=== PATIENT | male | born 1945 | race Caucasian/White ===

== ENCOUNTER 2016-12-09 09:40 | Outpatient (CLI) | payer MEDICARE, OTHER | END 2016-12-09 09:41 | disposition home or self-care (01) | DX: M16.12 Unilateral primary osteoarthritis, left hip (principal) ==

== ENCOUNTER 2017-01-10 11:40 | Outpatient (CLI) | payer MEDICARE, OTHER ==
--- NOTE | 2017-01-10 13:04 | XRAY Report ---
LEFT HIP AND PELVIS: 01/10/2017 CLINICAL INDICATION: Groin pain. COMPARISON: 12/09/2016. FINDINGS: Frontal view of the hips and pelvis and frogleg lateral view of the left hip demonstrate s table left hip osteoarthritis, with chondrocalcinosis. A right hip replacement is stable. There is no evidence of interval fracture or dislocation. IMPRESSION: STABLE OSTEOARTHRITIS. NO SIGNIFICANT INTERVAL CHANGE. JOB #: [id number] EXT JOB #:[id number]
== END 2017-01-10 11:41 | disposition home or self-care (01) ==
LOC: DI 11:40
PROVIDERS: ATTEND Nurse Practitioner Family
DX: M16.12 Unilateral primary osteoarthritis, left hip (principal); M11.252 Other chondrocalcinosis, left hip

== ENCOUNTER 2017-01-14 15:30 | Outpatient (CLI) | payer MEDICARE, OTHER ==
--- NOTE | 2017-01-14 17:50 | MRI Report ---
EXAM: LEFT HIP MRI WITHOUT CONTRAST EXAM DATE: 01/14/2017 04:23 PM. CLINICAL HISTORY: PAIN IN HIP. COMPARISON: LEFT HIP SERIES 01/10/2017. TECHNIQUE: Multiplanar, multisequence T1-weighted and fluid-sensitive, small [id number]-[id number] sequences of the hip and large wexnj-im-vbfy sequences of the pelvis without contrast. Other: None. FINDINGS: Bones: No fractures or subluxations. No avascular necrosis. Left Hip: No acetabular retroversion. 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 Left hip osteoarthritis with quite extensive juxtaarticular edema and cystic changes in the ante rior superior acetabulum, associated with severe cartilaginous thinning and anterior joint space narr owing. Mild joint effusion without loose body. Edema is also seen in the superior femoral head extend ing down to the superior part of femoral neck. Degenerated left hip labrum with abnormal signal in th e anterosuperior part and the superolateral part suggestive of labral tear although cannot be definit ively confirmed on this nonarthrographic study. The ligamentum teres is intact. Other Joints: Degenerative changes in the visualized lower lumbar spine with endplate edema at L4-L5. Degenerative changes in the sacroiliac joints and symphysis pubis. Prior right hip arthroplasty. Musculature: Mild muscular strain with mild edema in the left iliopsoas insertion. Mild fatty atrophy of bilateral gluteus medius and minimus, right more than left. Mild insertional tendinopathy of estephanie ateral gluteus medius and minimus tendons. The visualized hamstring tendons are normal. The ischiofem oral space is normal. No sports hernia. Pelvic Cavity: The visualized viscera are unremarkable. No lymphadenopathy. No free fluid in the pelv is. Other: The visualized sciatic nerves are unremarkable. No bursitis. The subcutaneous tissues are unre markable. IMPRESSION: 1. 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 2. Degenerated left hip labrum with abnormal signal in the anterosuperior part and the superolateral part suggestive of labral tear although cannot be definitively confirmed on this nonarthrographic martha dy. 3. Left hip osteoarthritis with quite extensive juxtaarticular edema and cystic changes in the anteri or superior acetabulum, associated with severe cartilaginous thinning and anterior joint space narrow ing. Mild joint effusion without loose body. 4. Edema is also seen in the superior femoral head extending down to the superior part of femoral nec k. No fracture. 5. Mild muscular strain with mild edema in the left iliopsoas insertion. 6. Mild insertional tendinopathy of bilateral gluteus medius and minimus tendons. No associated troch anteric bursitis. [facility] MUSCULOSKELETAL [facility]IOLOGY SECTION Referring Provider Line: [phone] SITE ID: [id number]
== END 2017-01-14 15:31 | disposition home or self-care (01) ==
LOC: DI 15:30
PROVIDERS: ATTEND Internal Medicine
DX: M16.12 Unilateral primary osteoarthritis, left hip (principal); M24.152 Other articular cartilage disorders, left hip; M25.452 Effusion, left hip; S76.012A Strain of muscle, fascia and tendon of left hip, initial encounter; M67.952 Unspecified disorder of synovium and tendon, left thigh

== ENCOUNTER 2017-01-17 15:02 | Outpatient (CLI) | payer MEDICARE, OTHER ==
--- NOTE | 2017-01-17 15:59 | Ultrasound Report ---
LEFT LEG VENOUS DUPLEX: 01/17/2017 CLINICAL INDICATION: Left groin pain. COMPARISON: 07/17/2014 TECHNIQUE: Real-time sonographic vascular imaging was performed by the shrimp picker through the left leg utilizing both color flow and Doppler spectral analysis. Multiple advertising sales representative static images w ere saved for review. FINDINGS: A left lower extremity venous sonogram is performed revealing the common femoral, superfici al femoral, profunda femoris, and popliteal veins to be adequately visualized without intraluminal de fects. There is normal venous compression, augmentation, phasicity, and spontaneity of venous flow. In the calf, the visualized more cephalad portions of posterior tibial and peroneal veins are grossl y compressible, without filling defects. IMPRESSION: NO EVIDENCE OF DEEP VENOUS THROMBOSIS. JOB #: [id number] EXT JOB #:[id number]
== END 2017-01-17 15:03 | disposition home or self-care (01) ==
LOC: DI 15:02
PROVIDERS: ATTEND Nurse Practitioner Family
DX: R10.32 Left lower quadrant pain (principal)

== ENCOUNTER 2017-09-15 09:59 | Outpatient (CLI) | payer MEDICARE, OTHER ==
[2017-09-15 17:41] LABS: BASOPHILS # (AUTO) 0.1 10^3/uL (0.0-0.1); BASOPHILS % (AUTO) 0.8 %; EOSINOPHILS # (AUTO) 0.4 10^3/uL (0.0-0.7); EOSINOPHILS % (AUTO) 6.5 %; HGB - HEMOGLOBIN 14.2 g/dL (14.0-18.0); LYMPHOCYTES # (AUTO) 1.9 10^3/uL (1.5-3.5); LYMPHOCYTES % (AUTO) 30.1 %; MEAN CORPUSCULAR HEMOGLOBIN 30.1 pg (27.0-31.0); MEAN CORPUSCULAR HGB CONC 33.2 g/dL (32.0-36.0); MEAN CORPUSCULAR VOLUME 90.8 fL (80.0-94.0); MEAN PLATELET VOLUME 8.5 fL (7.4-11.4); MONOCYTES # (AUTO) 0.8 10^3/uL (0.0-1.0); MONOCYTES % (AUTO) 12.7 %; NEUTROPHILS # (AUTO) 3.2 10^3/uL (1.5-6.6); NEUTROPHILS % (AUTO) 49.9 %; PLT - PLATELET COUNT 230 10^3/uL (130-450); RED BLOOD COUNT 4.73 10^6/uL (4.70-6.10); RED CELL DISTRIBUTION WIDTH 14.4 % (12.0-15.0); WHITE BLOOD COUNT 6.4 x10^3/uL (4.8-10.8)
[2017-09-15 18:38] LABS: % IRON SATURATION 39 % (20-50); CALCIUM 9.1 mg/dL (8.5-10.3); IRON 125 ug/dL (45-182); MAGNESIUM 1.9 mg/dL (1.7-2.8); TOTAL IRON BINDING CAPACITY 323 ug/dL (250-450); TRANSFERRIN 231 mg/dL (180-329)
[2017-09-15 18:39] LABS: CRP - C-REACTIVE PROTEIN < 1.0 mg/dL (0-1.0)
== END 2017-09-15 10:00 | disposition home or self-care (01) ==
LOC: LAB.F 09:59
PROVIDERS: ATTEND Internal Medicine
DX: E78.5 Hyperlipidemia, unspecified (principal); E66.9 Obesity, unspecified; G64 Other disorders of peripheral nervous system; M11.80 Other specified crystal arthropathies, unspecified site; I10 Essential (primary) hypertension; E03.9 Hypothyroidism, unspecified; R73.01 Impaired fasting glucose; Z79.01 Long term (current) use of anticoagulants; D64.9 Anemia, unspecified; E55.9 Vitamin D deficiency, unspecified
CPT/HCPCS: 36415; 82306; 82310; 83540; 83735; 83970; 84466; 85025; 86140

== ENCOUNTER 2017-11-10 12:16 | Emergency (ER) | payer MEDICARE, OTHER ==
[2017-11-10 12:29] VITALS: BP 125/89
--- NOTE | 2017-11-10 13:51 | ED Physician Documentation ---
PD HPI LOWER EXT INJURY - Stated complaint Stated Complaint: CALF PX - Chief complaint Chief Complaint: Ext Problem - History obtained from History obtained from: Patient - History of Present Illness PD HPI LOW EXT INJURY LOCATION: Other (He has a history of postoperative DVT in the right leg. Starting yesterday he has had pain in the calf, a tightness sensation. He wonders if it might be gout because he ate a lot of states last week, but it is not in the joint per se. There is no associated chest pain or trouble breathing.) Review of Systems Constitutional: denies: Fever, Chills Cardiac: denies: Chest pain / pressure, Palpitations Respiratory: denies: Dyspnea, Cough GI: denies: Abdominal Pain PD PAST MEDICAL HISTORY - Past Medical History Past Medical History: Yes Cardiovascular: Hypertension, Deep vein thrombosis Respiratory: None Neuro: Head injury Endocrine/Autoimmune: HyPOthyroidism GI: None : Frequency HEENT: None Psych: None Musculoskeletal: Osteoarthritis Derm: None - Past Surgical History Past Surgical History: Yes General: Other Ortho: Knee replacement - Present Medications Home Medications: Ambulatory Orders Medication Instructions Recorded Confirmed Metoprolol Tartrate 12.5 mg PO DAILY 07/17/14 06/18/16 Atorvastatin [Lipitor] 10 tab PO DAILY 07/20/14 06/18/16 Levothyroxine Sodium [Levoxyl] 25 mcg PO DAILY 07/20/14 06/18/16 Losartan [Cozaar] 100 mg PO DAILY 07/20/14 06/18/16 Tamsulosin HCl [Flomax] 0.4 mg PO DAILY 07/20/14 06/18/16 Cholecalciferol (Vitamin D3) 400 unit PO DAILY 10/16/15 06/18/16 [Vitamin D] Gabapentin 300 mg PO BID 10/16/15 06/18/16 Temazepam [Restoril] 15 mg PO HS 10/16/15 06/18/16 Hydrocodone/Acetaminophen 1 - 2 each PO Q6H PRN #14 tablet 06/18/16 [Hydrocodon-Acetaminophen 5-325] Rivaroxaban [Xarelto] 0 mg DAILY 06/18/16 06/18/16 - Allergies Allergies/Adverse Reactions: Allergies Allergy/AdvReac Type Severity Reaction Status Date / Time No Known Drug Allergies Allergy Verified 11/10/17 12:30 - Social History Does the pt smoke?: No Smoking Status: Never smoker Does the pt drink ETOH?: No Does the pt have substance abuse?: No - Immunizations Immunizations are current?: No PD ED PE NORMAL - Vitals Vital signs reviewed: Yes - General General: Alert and oriented X 3, No acute distress - Abdomen Abdomen: Soft, Non tender - Extremities Extremities: Other (There is some tightness of the right calf which could be a DVT or just muscle spasm. There is also some fullness in the popliteal fossa which could be a Lamar's cyst. There is no pain with range of motion of the knee or ankle and there is no redness or warmth to the leg.) - Neuro Neuro: Alert and oriented X 3, Normal speech Results - Vitals Vitals: Vital Signs - 24 hr 11/10/17 12:25 Temperature 36.5 C Heart Rate 72 Respiratory 15 Rate Blood Pressure 125/89 H O2 Saturation 97 Oxygen O2 Source Room air - Labs Labs: Laboratory Tests 11/10/17 11/10/17 13:58 13:58 WBC 7.3 RBC 4.77 Hgb 14.7 Hct 43.4 MCV 91.1 MCH 30.8 MCHC 33.8 RDW 13.7 Plt Count 227 MPV 8.0 Neut # 4.3 Lymph # 1.9 [place] # 0.9 Eos # 0.2 Baso # 0.0 Absolute Nucleated RBC 0.00 Nucleated RBC % 0.0 Sodium 135 Potassium 4.1 Chloride 103 Carbon Dioxide 26 Anion Gap 6.0 BUN 16 Creatinine 0.7 Estimated GFR (MDRD) 112 Glucose 100 Calcium 9.1 Total Bilirubin 0.7 AST 26 ALT 25 Alkaline Phosphatase 43 Total Protein 7.1 Albumin 4.3 Globulin 2.8 Albumin/Globulin Ratio 1.5 Lipase 12 L - Rads (name of study) RLE DVt scan Radiology: Prelim report reviewed (negative) Departure - Departure Disposition: Home, Self Care Clinical Impression: Hx of deep venous thrombosis Pain of lower extremity Qualifiers: Laterality: right Qualified Code(s): M79.604 - Pain in right leg Condition: Good Record reviewed to determine appropriate education?: Yes Instructions: ED Muscle Pain Leg Cramps Comments: Call your doctor to arrange a follow-up appointment, make the next available appointment. In the interim, return anytime if worse or if new symptoms develop. Your blood pressure was elevated today on check into the emergency department. This does not mean that you have hypertension, it is a common phenomenon to come to the emergency department and have elevated blood pressure. I recommend that you see your primary care physician within the week to have it rechecked when you are feeling better.
[2017-11-10 14:08] LABS: BASOPHILS % (AUTO) 0.6 %; EOSINOPHILS # (AUTO) 0.2 10^3/uL (0.0-0.7); EOSINOPHILS % (AUTO) 3.1 %; HGB - HEMOGLOBIN 14.7 g/dL (14.0-18.0); LYMPHOCYTES # (AUTO) 1.9 10^3/uL (1.5-3.5); LYMPHOCYTES % (AUTO) 25.9 %; MEAN CORPUSCULAR HEMOGLOBIN 30.8 pg (27.0-31.0); MEAN CORPUSCULAR HGB CONC 33.8 g/dL (32.0-36.0); MEAN CORPUSCULAR VOLUME 91.1 fL (80.0-94.0); MONOCYTES # (AUTO) 0.9 10^3/uL (0.0-1.0); MONOCYTES % (AUTO) 11.7 %; NEUTROPHILS # (AUTO) 4.3 10^3/uL (1.5-6.6); NEUTROPHILS % (AUTO) 58.7 %; PLT - PLATELET COUNT 227 10^3/uL (130-450); RED BLOOD COUNT 4.77 10^6/uL (4.70-6.10); RED CELL DISTRIBUTION WIDTH 13.7 % (12.0-15.0); WHITE BLOOD COUNT 7.3 x10^3/uL (4.8-10.8)
[2017-11-10 14:22] LABS: ALBUMIN 4.3 g/dL (3.2-5.5); ALBUMIN/GLOBULIN RATIO 1.5 (1.0-2.2); BILIRUBIN,TOTAL 0.7 mg/dL (0.2-1.0); CALCIUM 9.1 mg/dL (8.5-10.3); CREATININE 0.7 mg/dL (0.6-1.2); TOTAL PROTEIN 7.1 g/dL (6.7-8.2)
[2017-11-10] MEDS ORDERED: COLCHICINE 0.6 MG TABLET PO STA (15:38)
--- NOTE | 2017-11-10 17:08 | Ultrasound Report ---
RIGHT LOWER EXTREMITY VENOUS SONOGRAM: 11/10/2017 HISTORY: Calf pain. TECHNIQUE: Real-time scanning by the cane pusher with saved static images reviewed. FINDINGS: The right common femoral, deep femoral, femoral, greater saphenous, peroneal, and posterior tibial veins are normal. Normal augmentation, compressibility, and flow by Doppler. No intraluminal clot. IMPRESSION: NEGATIVE FOR DEEP VENOUS THROMBOSIS RIGHT LOWER EXTREMITY. TD: 11/10/2017 17:07
== END 2017-11-10 15:56 | disposition home or self-care (01) ==
LOC: ED 12:16
DX: M79.604 Pain in right leg (principal); Z86.718 Personal history of other venous thrombosis and embolism; I10 Essential (primary) hypertension; E03.9 Hypothyroidism, unspecified; Z96.659 Presence of unspecified artificial knee joint
CPT/HCPCS: 36415; 80053; 83690; 85025; 93971; 99283; A9270

== ENCOUNTER 2018-02-11 11:40 | Outpatient (CLI) | payer MEDICARE, OTHER ==
--- NOTE | 2018-02-11 14:16 | XRAY Report ---
Procedure Date: 02/11/2018 Accession Number: [id number] / [id number] Procedure: XR - Chest 2 View X-Ray CPT Code: 14873 FULL RESULT: EXAM: CHEST RADIOGRAPHY EXAM DATE: 02/11/2018 12:22 PM. CLINICAL HISTORY: RIB PAIN,UNSPECIFIED ABDOMINAL PAIN. Left upper quadrant pain. Fall from ladder. COMPARISON: Abdomen radiograph today. CT angiogram chest 07/20/2014. TECHNIQUE: 2 views. FINDINGS: Lungs/Pleura: Minimal left hemidiaphragm elevation, as before. Minimal linear bibasilar atelectasis. No confluent consolidation or generalized interstitial abnormality. No pneumothorax or pleural effusion. Mediastinum: Heart and mediastinal contours are unremarkable. Other: Minimal diffuse idiopathic skeletal hyperostosis in the lower thoracic spine. Rib detail radiographs were not obtained. Visualized left-sided ribs unremarkable. IMPRESSION: 1. Minimal linear bibasilar atelectasis. No pneumothorax or pleural fluid. 2. Rib detail radiographs were not obtained. Visualized left-sided ribs are unremarkable. [facility]
--- NOTE | 2018-02-11 23:35 | XRAY Report ---
Procedure Date: 02/11/2018 Accession Number: [id number] / [id number] Procedure: XR - Abdomen 2 View X-Ray CPT Code: 17819 FULL RESULT: EXAM: ABDOMEN RADIOGRAPHY EXAM DATE: 02/11/2018 12:25 PM. CLINICAL HISTORY: Constipation x1 week. COMPARISON: None. TECHNIQUE: 2 views. FINDINGS: Lung Bases: Clear as visualized. Bowel Gas Pattern: Large colonic stool volume. No dilated small bowel loops. Free Air: None. Bones: Old fracture deformities of the right lateral eighth and ninth ribs. Degenerative changes within the spine. Bilateral total hip arthroplasties. Other: Small intrapelvic phleboliths. IMPRESSION: Large colonic stool volume, compatible with reported constipation. [facility]
== END 2018-02-11 11:41 | disposition home or self-care (01) ==
LOC: DI 11:40
PROVIDERS: ATTEND Internal Medicine
DX: K59.00 Constipation, unspecified (principal); R14.0 Abdominal distension (gaseous); R07.81 Pleurodynia
CPT/HCPCS: 71046; 74019

== ENCOUNTER 2018-04-28 12:48 | Outpatient (CLI) | payer MEDICARE, OTHER ==
[2018-04-28] MEDS ORDERED: IOPAMIDOL-300 100 ML VIAL ONE (13:34)
[2018-04-28] MEDS ORDERED: IOPAMIDOL-300 100 ML VIAL IVP ONE (13:46)
--- NOTE | 2018-04-28 17:49 | CT Report ---
Reason: THORACIC AORTIC ECTASIA, ECTATIC ASCENDING AORTA Procedure Date: 04/28/2018 Accession Number: [id number] / [id number] Procedure: CT - Chest Angio (PE) CPT Code: FULL RESULT: EXAM: CTA CHEST EXAM DATE: 04/28/2018 01:50 PM. CLINICAL HISTORY: Thoracic aortic ectasia. Ectatic ascending aorta. COMPARISON: Chest angiogram 07/20/2014 5:15 PM. TECHNIQUE: Prior to and following intravenous administration of 80 mL of Isovue-300, multiplanar 3D/MIP reconstruction of the thoracic aorta was performed. In accordance with CT protocol optimization, one or more of the following dose reduction techniques were utilized for this exam: automated exposure control, adjustment of mA and/or KV based on patient size, or use of iterative reconstructive technique. FINDINGS: Vascular Structures: Normal. No aneurysm, dissection, or significant atherosclerotic disease of the thoracic aorta. The visualized pulmonary arteries are within normal limits. Lungs/Pleura: No consolidation, nodules, or edema. No effusions or pneumothorax. Mediastinum: Coronary artery calcification noted. No cardiac enlargement or adenopathy. Hypertrophied LV myocardium noted. Upper Abdomen: Diffuse liver low-density noted. Other: None. IMPRESSION: 1. No aortic aneurysm or dissection. 2. Coronary artery calcification noted. 3. LV myocardial hypertrophy noted concerning for hypertrophic cardiomyopathy. [facility]
== END 2018-04-28 12:49 | disposition home or self-care (01) ==
LOC: DI 12:48
PROVIDERS: ATTEND Internal Medicine
DX: I77.810 Thoracic aortic ectasia (principal); I51.7 Cardiomegaly
CPT/HCPCS: 71275; Q9967

== ENCOUNTER 2018-08-10 13:24 | Outpatient (CLI) | payer MEDICARE, OTHER ==
--- NOTE | 2018-08-10 15:31 | XRAY Report ---
Reason: PLEURODYNIA Procedure Date: 08/10/2018 Accession Number: [id number] / [id number] Procedure: XR - Ribs Bilat w/Chest 4 View CPT Code: FULL RESULT: EXAM: BILATERAL RIB RADIOGRAPHY EXAM DATE: 08/10/2018 01:47 PM. CLINICAL HISTORY: PLEURODYNIA. COMPARISON: None. TECHNIQUE: 1 view of the chest and 2 views of the ribs. FINDINGS: There is a mildly displaced fracture of the lateral right ninth rib. No pneumothorax. Lungs appear clear. Mediastinum unremarkable. IMPRESSION: Right ninth rib fracture [facility]
== END 2018-08-10 13:25 | disposition home or self-care (01) ==
LOC: DI 13:24
PROVIDERS: ATTEND Internal Medicine
DX: S22.31XA Fracture of one rib, right side, initial encounter for closed fracture (principal)
CPT/HCPCS: 71111

== ENCOUNTER 2019-04-04 10:01 | Outpatient (CLI) | payer MEDICARE, OTHER, BC ==
--- NOTE | 2019-04-05 12:26 | Ultrasound Report ---
Reason: LOWER URINARY TRACT SYMPTOMS DUE TO BENIGN PROSTAT Procedure Date: 04/04/2019 Accession Number: [id number] / [id number] Procedure: US - Bladder CPT Code: FULL RESULT: EXAM: PELVIS ULTRASOUND, LIMITED EXAM DATE: 04/04/2019 10:57 AM. CLINICAL HISTORY: Lower urinary tract symptoms due to benign prostatic hyperplasia. COMPARISON: None. TECHNIQUE: Real-time scanning was performed with static images obtained. FINDINGS: Pre-and post void images of the bladder were obtained with the prevoid bladder measuring 9.9 x 6.6 x 7.2 cm for a volume of 228 cc. Postvoid the bladder measures 6.3 x 4.7 x 5.9 cm for a postvoid residual of 92 cc. Bilateral ureteral jets are appreciated. IMPRESSION: 92 cc postvoid residual. [facility]
== END 2019-04-04 10:02 | disposition home or self-care (01) ==
LOC: DI 10:01
PROVIDERS: ATTEND Internal Medicine
DX: N40.1 Benign prostatic hyperplasia with lower urinary tract symptoms (principal)
CPT/HCPCS: 76857

== ENCOUNTER 2019-06-11 22:59 | Outpatient (CLI) | payer MEDICARE, OTHER | END 2019-06-11 23:00 | disposition EMS.NT | LOC: EMS 22:59 | PROVIDERS: ATTEND Surgery | DX: R26.2 Difficulty in walking, not elsewhere classified (principal); R47.81 Slurred speech ==

== ENCOUNTER 2019-06-17 15:00 | Outpatient (CLI) | payer MEDICARE, OTHER | END 2019-06-17 15:01 | disposition EMS.NT | LOC: EMS 15:00 | PROVIDERS: ATTEND Surgery | DX: S09.90XA Unspecified injury of head, initial encounter (principal); W18.39XA Other fall on same level, initial encounter; Y92.008 Other place in unspecified non-institutional (private) residence as the place of occurrence of the external cause ==